=== PATIENT | male | born 1945 | race Caucasian/White ===

== ENCOUNTER → 2016-11-12 | Outpatient (CLI) | payer OTHER ==
[~2016-11-12] MED LIST: APIX5TAB PO; ATOR10TA9 PO; DIGO125T PO; DILT120C11 PO; PARO30TA3 PO; PT WILL BRING LIST; TRIA15CR3 TP; ZOSTAVAX
== END | disposition home or self-care (01) ==
LOC: CFH 11:58
PROVIDERS: ATTEND Nurse Practitioner
DX: Z12.2 Encounter for screening for malignant neoplasm of respiratory organs (principal); I25.10 Atherosclerotic heart disease of native coronary artery without angina pectoris; J43.2 Centrilobular emphysema; R91.1 Solitary pulmonary nodule; K46.9 Unspecified abdominal hernia without obstruction or gangrene; Z87.891 Personal history of nicotine dependence
CPT/HCPCS: G0297

== ENCOUNTER 2017-04-21 06:33 | Observation (INO) | payer OTHER ==
[2017-04-18 10:16] VITALS: BP 130/104
[2017-04-18 10:44] LABS: HEMOGLOBIN 15.7 g/dL (13.7-18.0); WHITE BLOOD COUNT 7.8 x10^3/uL (3.4-10)
[2017-04-18 10:57] LABS: ASPARTATE AMINO TRANSFERASE 31 U/L (15-37); BLOOD UREA NITROGEN 14 mg/dL (7-18)
[~2017-04-21] VITALS: Ht 180.3 cm; Wt 113.2 kg
[~2017-04-21 06:33] MED LIST changes: +LISI2.5T PO; +METO-93 PO; +MULT-516 PO; +OMEG1CAP6 PO; +TAMS-11 PO; +VITAMIN B12 PO
[2017-04-21] MEDS ORDERED: SODIUM CHLORIDE 0.9% 1,000 ML IV SCH (06:45)
[2017-04-21] MEDS ORDERED: MIDAZOLAM 1 MG/ML, 5ML ONE ×2 (07:48→13:44)
[2017-04-21] MEDS ORDERED: FENTANYL PF 100 MCG/2ML ONE ×3 (07:49→13:44)
[2017-04-21] MEDS ORDERED: ISOPROTERENOL 0.2MG/ML, 5ML ONE (07:50)
[2017-04-21] MEDS ORDERED: LIDOCAINE 2%, 20ML ONE ×3 (07:50→13:45)
[2017-04-21] MEDS ORDERED: PROTAMINE SULFATE 10 MG/ML, 5ML ONE (07:50)
[2017-04-21] MEDS ORDERED: HEPARIN 1,000 UNITS/ML, 10ML ONE (07:50)
[2017-04-21] MEDS ORDERED: PROPOFOL 10 MG/ML, 20ML ONE (08:12)
[2017-04-21] MEDS ORDERED: DEXAMETHASONE 4 MG/ML, 5ML ONE (08:12)
[2017-04-21] MEDS ORDERED: ONDANSETRON 2MG/ML, 2ML ONE (08:12)
[2017-04-21] MEDS ORDERED: SUCCINYLCHOLINE 20 MG/ML, 10ML ONE (08:12)
[2017-04-21] MEDS ORDERED: ROCURONIUM 10 MG/ML ONE (08:12)
[2017-04-21] MEDS ORDERED: MIDAZOLAM 1 MG/ML, 2ML IV PRN (10:00)
[2017-04-21] MEDS ORDERED: FENTANYL PF 100 MCG/2ML IV PRN (10:00)
[2017-04-21] MEDS ORDERED: ACETAMINOPHEN 325 MG TABLET PO PRN (10:00)
[2017-04-21] MEDS ORDERED: ONDANSETRON 2MG/ML, 2ML IVPush PRN (10:00)
[2017-04-21] MEDS ORDERED: EPHEDRINE 50 MG/ML, 1ML IVPush PRN (10:00)
[2017-04-21] MEDS ORDERED: ALBUTEROL SULFATE 2.5 MG/3 ML NPPB PRN (10:00)
[2017-04-21] MEDS ORDERED: hydrALAzine 20 MG/ML, 1ML IV PRN (10:00)
[2017-04-21] MEDS ORDERED: OXYcodone 5 MG/5 ML ORAL.SOL UDC PO PRN (10:00)
[2017-04-21] MEDS ORDERED: HYDROmorphone 1 MG/ML, 1ML IV PRN (10:00)
[2017-04-21] MEDS ORDERED: LABETALOL 5MG/ML, 20ML IV PRN (10:00)
[2017-04-21] MEDS ORDERED: MEPERIDINE/PF 25MG/0.5ML IVPush PRN (10:00)
[2017-04-21] MEDS ORDERED: PROMETHAZINE 25 MG/ML, 1ML IV PRN (10:00)
[2017-04-21] MEDS ORDERED: ZOLPIDEM 5MG TABLET PO PRN (11:30)
[2017-04-21] MEDS ORDERED: HYDROcodone/APAP 5/325 TABLET PO PRN (11:30)
[2017-04-21] MEDS ORDERED: CEFAZOLIN PMX 1GM/50ML 50 ML ONE (13:44)
[2017-04-21] MEDS ORDERED: CEFAZOLIN 1,000 MG ONE (13:45)
[2017-04-21] MEDS ORDERED: CEFAZOLIN PMX 1GM/50ML 50 ML IVPB SCH ×2 (16:00)
[2017-04-21 16:23] VITALS: BP 101/70
[2017-04-21 18:42] VITALS: BP 110/71
[2017-04-21] MEDS: TRIAMCINOLONE CRM 0.1%, 15GM TP SCH (21:00)
[2017-04-21] MEDS: APIXABAN 5 MG TABLET PO SCH (21:00)
[2017-04-21] MEDS ORDERED: ATORVASTATIN 10 MG TABLET PO SCH (21:00)
[2017-04-21] MEDS: LISINOPRIL 5 MG TABLET PO SCH (21:11)
[2017-04-21] MEDS: SODIUM CHLORIDE FLUSH 10ML SYR IVF SCH (21:12)
[2017-04-21] MEDS: CEFAZOLIN PMX 1GM/50ML 50 ML IVPB SCH (23:29)
[2017-04-21] MEDS: TAMSULOSIN 0.4 MG CAP.ER.24H PO SCH (23:29)
[2017-04-22 01:00] VITALS: BP 111/70
[2017-04-22 07:15] VITALS: BP 132/89
[2017-04-22] MEDS ORDERED: OMEGA-3/FISH OIL CAPSULE PO SCH (09:00)
[2017-04-22] MEDS ORDERED: METOPROLOL SUCCINATE 50 MG TAB.ER.24H PO SCH (09:00)
[2017-04-22] MEDS ORDERED: MULTIVITAMIN 1 TABLET PO SCH (09:00)
[2017-04-22] MEDS: APIXABAN 5 MG TABLET PO SCH ×2 (09:00→10:08)
[2017-04-22] MEDS ORDERED: CYANOCOBALAMIN 1,000 MCG TABLET PO SCH (09:00)
[2017-04-22] MEDS ORDERED: PAROXETINE 20 MG TABLET PO SCH (09:00)
[2017-04-22] MEDS ORDERED: TAMSULOSIN 0.4 MG CAP.ER.24H PO SCH (09:00)
[2017-04-22] MEDS: TRIAMCINOLONE CRM 0.1%, 15GM TP SCH (09:00)
[2017-04-22] MEDS: CEFAZOLIN PMX 1GM/50ML 50 ML IVPB SCH (10:12)
[2017-04-22] MEDS: LISINOPRIL 5 MG TABLET PO SCH (10:15)
[2017-04-22] MEDS: TAMSULOSIN 0.4 MG CAP.ER.24H PO SCH (10:15)
[2017-04-22] MEDS: SODIUM CHLORIDE FLUSH 10ML SYR IVF SCH (10:19)
== END 2017-04-22 14:02 | disposition home or self-care (01) ==
LOC: CACL 06:33 → ORIP 15:54 → 5SO 16:07 → DCLOUNGE 04-22 13:43
PROVIDERS: ADMIT Internal Medicine Cardiovascular Disease; ATTEND Internal Medicine Cardiovascular Disease
DX: I48.92 Unspecified atrial flutter (principal); I48.91 Unspecified atrial fibrillation; I49.5 Sick sinus syndrome; I42.9 Cardiomyopathy, unspecified; I10 Essential (primary) hypertension; E78.5 Hyperlipidemia, unspecified
CPT/HCPCS: 33208; 36005; 36415; 71010; 71020; 80053; 85025; 85610; 85730; 93312; 93321; 93325; 93613; 93621; 93653; 96365; 96375; 99156; 99157; C1730; C1731; C1779; C1785; C1892; C1894; C2630; G0378; J0330; J0690; J1100; J2250; J2405; J2704; J3010; J3490; Q9967; J1644; J2720

== ENCOUNTER 2017-04-28 19:27 | Emergency (ER) | payer OTHER ==
[~2017-04-28] VITALS: Ht 180.3 cm; Wt 108.0 kg
[2017-04-28] MEDS ORDERED: DILTIAZEM 125 MG in DEXTROSE 5% 100 ML IV SCH (19:56)
[2017-04-28] MEDS ORDERED: DILTIAZEM 5 MG/ML, 5ML ONE (19:57)
[2017-04-28] MEDS ORDERED: DILTIAZEM 5 MG/ML, 5ML IV ONE (20:00)
[2017-04-28 20:01] LABS: HEMATOCRIT 44.8 % (39.2-51.8); HEMOGLOBIN 15.3 g/dL (13.7-18.0); WHITE BLOOD COUNT 9.4 x10^3/uL (3.4-10)
[2017-04-28 20:12] LABS: BLOOD UREA NITROGEN 14 mg/dL (7-18)
[2017-04-28 20:16] LABS: IS PT STATUS REG ER OR PRE ER? YES
[2017-04-28] MEDS ORDERED: DIGOXIN 0.25 MG/ML, 2ML ONE (20:43)
[2017-04-28] MEDS ORDERED: DIGOXIN 0.25 MG/ML, 2ML IVPush ONE (21:00)
[2017-04-28] MEDS ORDERED: SODIUM CHLORIDE 0.9% 1,000ML IVBOLUS ONE (21:00)
[2017-04-28 22:04] VITALS: BP 99/63
== END 2017-04-28 22:09 | disposition home or self-care (01) ==
LOC: ED 21:36
DX: I48.92 Unspecified atrial flutter (principal); E78.00 Pure hypercholesterolemia, unspecified; I10 Essential (primary) hypertension
CPT/HCPCS: 36415; 71010; 80048; 82040; 84484; 85025; 93005; 96360; 99285; J7030

== ENCOUNTER 2017-07-04 09:22 | Inpatient (IN) | payer OTHER ==
[2017-07-02 11:04] VITALS: BP 131/75
[2017-07-02 11:19] LABS: HEMATOCRIT 44.2 % (39.2-51.8); HEMOGLOBIN 15.3 g/dL (13.7-18.0); WHITE BLOOD COUNT 7.3 x10^3/uL (3.4-10)
[2017-07-02 11:32] LABS: ASPARTATE AMINO TRANSFERASE 30 U/L (15-37); BLOOD UREA NITROGEN 11 mg/dL (7-18)
[~2017-07-04] VITALS: Ht 180.3 cm; Wt 105.9 kg
[2017-07-04] MEDS ORDERED: SODIUM CHLORIDE 0.9% 1,000 ML IV SCH (09:33)
[2017-07-04] MEDS ORDERED: DIGO125T PO (09:47)
[2017-07-04] MEDS ORDERED: MIDAZOLAM 1 MG/ML, 5ML ONE ×2 (12:05→13:55)
[2017-07-04] MEDS ORDERED: ADENOSINE 6 MG/2 ML ONE ×2 (12:05→14:14)
[2017-07-04] MEDS ORDERED: ISOPROTERENOL 0.2MG/ML, 5ML ONE (12:05)
[2017-07-04] MEDS ORDERED: LIDOCAINE 2%, 20ML ONE (12:05)
[2017-07-04] MEDS ORDERED: FENTANYL PF 100 MCG/2ML ONE ×2 (12:05→13:55)
[2017-07-04] MEDS ORDERED: ZOLPIDEM 5MG TABLET PO PRN (15:00)
[2017-07-04] MEDS ORDERED: ACETAMINOPHEN 325 MG TABLET PO PRN (15:00)
[2017-07-04 16:09] VITALS: BP 112/78
[2017-07-04] MEDS: SOTALOL 120MG TABLET PO SCH (17:32)
[2017-07-04 19:27] VITALS: BP 97/62
[2017-07-04] MEDS: TRIAMCINOLONE CRM 0.1%, 15GM TP SCH (20:08)
[2017-07-04] MEDS: APIXABAN 5 MG TABLET PO SCH (20:09)
[2017-07-04] MEDS: ATORVASTATIN 20 MG TABLET PO SCH (20:10)
[2017-07-04] MEDS: LISINOPRIL 5 MG TABLET PO SCH (20:10)
[2017-07-05 02:16] VITALS: BP 110/65
[2017-07-05 06:23] VITALS: BP 120/76
[2017-07-05] MEDS: SOTALOL 120MG TABLET PO SCH ×2 (06:25→20:31)
[2017-07-05 07:47] VITALS: BP 112/68
[2017-07-05] MEDS: PAROXETINE 10 MG TABLET PO SCH (08:10)
[2017-07-05] MEDS: DIGOXIN 0.125 MG TABLET PO SCH (08:10)
[2017-07-05] MEDS: TRIAMCINOLONE CRM 0.1%, 15GM TP SCH ×2 (08:10→19:13)
[2017-07-05] MEDS: LISINOPRIL 5 MG TABLET PO SCH ×2 (08:10→20:32)
[2017-07-05] MEDS: CYANOCOBALAMIN 1,000 MCG TABLET PO SCH (08:10)
[2017-07-05] MEDS: APIXABAN 5 MG TABLET PO SCH ×2 (08:10→20:31)
[2017-07-05] MEDS: MULTIVITAMIN 1 TABLET PO SCH (08:10)
[2017-07-05] MEDS: OMEGA-3/FISH OIL CAPSULE PO SCH (08:17)
[2017-07-05] MEDS ORDERED: TAMSULOSIN 0.4 MG CAP.ER.24H PO SCH (09:00)
[2017-07-05 14:07] VITALS: BP 92/58
[2017-07-05 20:26] VITALS: BP 103/65
[2017-07-05] MEDS: ATORVASTATIN 20 MG TABLET PO SCH (20:32)
[2017-07-06 02:51] VITALS: BP 108/69
[2017-07-06 07:04] VITALS: BP 119/75
[2017-07-06] MEDS: CYANOCOBALAMIN 1,000 MCG TABLET PO SCH (08:47)
[2017-07-06] MEDS: LISINOPRIL 5 MG TABLET PO SCH (08:47)
[2017-07-06] MEDS: OMEGA-3/FISH OIL CAPSULE PO SCH (08:47)
[2017-07-06] MEDS: MULTIVITAMIN 1 TABLET PO SCH (08:48)
[2017-07-06] MEDS: SOTALOL 120MG TABLET PO SCH (08:48)
[2017-07-06] MEDS: DIGOXIN 0.125 MG TABLET PO SCH (08:48)
[2017-07-06] MEDS: APIXABAN 5 MG TABLET PO SCH (08:48)
[2017-07-06] MEDS: PAROXETINE 10 MG TABLET PO SCH (08:48)
[2017-07-06] MEDS: TRIAMCINOLONE CRM 0.1%, 15GM TP SCH (08:49)
[2017-07-06] MEDS ORDERED: SOTA120T14 PO (08:54)
== END 2017-07-06 11:06 | disposition home or self-care (01) | DRG 274 ==
LOC: CACL 09:22 → ORIP 14:42 → 5SO 15:11 → OBSVTOIN 07-05 11:11
PROVIDERS: ADMIT Internal Medicine Cardiovascular Disease; ATTEND Internal Medicine Cardiovascular Disease
PROC: 5A2204Z Restoration of Cardiac Rhythm, Single (ICD-10-PCS; 2017-07-04)
PROC: 5A2204Z Restoration of Cardiac Rhythm, Single (ICD-10-PCS; 2017-07-04)
PROC: 02583ZZ Destruction of Conduction Mechanism, Percutaneous Approach (ICD-10-PCS; principal; 2017-07-05)
PROC: 4A023FZ Measurement of Cardiac Rhythm, Percutaneous Approach (ICD-10-PCS; 2017-07-05)
PROC: 4A0234Z Measurement of Cardiac Electrical Activity, Percutaneous Approach (ICD-10-PCS; 2017-07-05)
PROC: 02K83ZZ Map Conduction Mechanism, Percutaneous Approach (ICD-10-PCS; 2017-07-05)
PROC: 4B02XSZ Measurement of Cardiac Pacemaker, External Approach (ICD-10-PCS; 2017-07-06)
DX: I47.1 Supraventricular tachycardia (principal); D68.69 Other thrombophilia; I42.9 Cardiomyopathy, unspecified; I48.0 Paroxysmal atrial fibrillation; E78.5 Hyperlipidemia, unspecified; I10 Essential (primary) hypertension; N40.0 Benign prostatic hyperplasia without lower urinary tract symptoms; Z87.891 Personal history of nicotine dependence; Z95.0 Presence of cardiac pacemaker; Z79.899 Other long term (current) drug therapy
CPT/HCPCS: 36415; 71020; 80053; 85025; 85610; 85730; 93005; 93613; 93621; 93653; 93655; 99156; 99157; C1731; C1766; C1894; C2630; G0378; J0153; J2250; J3010; J3490; C1730

== ENCOUNTER → 2018-01-05 | Outpatient (CLI) | payer OTHER ==
[~2018-01-05] MED LIST changes: +SOTA120T14 PO
== END | disposition home or self-care (01) ==
LOC: CFH 15:26
PROVIDERS: ATTEND Nurse Practitioner Family
DX: I08.0 Rheumatic disorders of both mitral and aortic valves (principal); I48.91 Unspecified atrial fibrillation; E78.5 Hyperlipidemia, unspecified; I47.2 Ventricular tachycardia
CPT/HCPCS: 93306

== ENCOUNTER → 2018-01-05 | Outpatient (CLI) | payer OTHER ==
[~2018-01-05] MED LIST changes: +REGADENOSON 0.4 MG/5 ML SYRINGE ONE
== END | disposition home or self-care (01) ==
LOC: CFH 12:18
PROVIDERS: ATTEND Nurse Practitioner
DX: I25.10 Atherosclerotic heart disease of native coronary artery without angina pectoris (principal); Z87.891 Personal history of nicotine dependence
CPT/HCPCS: 78452; 93017; A9502; G0297; J2785

== ENCOUNTER 2018-01-31 09:12 | Inpatient (IN) | payer OTHER ==
[~2018-01-31] VITALS: Ht 180.3 cm; Wt 110.8 kg
[~2018-01-31 09:12] MED LIST changes: -REGADENOSON 0.4 MG/5 ML SYRINGE ONE
[2018-01-31] MEDS ORDERED: SODIUM CHLORIDE FLUSH 10ML SYR IVF ONE (09:30)
[2018-01-31] MEDS ORDERED: ALBUTEROL/IPRATROPIUM 2.5MG/0.5MG, 3 ML NPPB ONE (09:30)
[2018-01-31] MEDS ORDERED: SODIUM CHLORIDE 0.9% 1,000ML IVBOLUS ONE (09:30)
[2018-01-31] MEDS ORDERED: ALBUTEROL/IPRATROPIUM 2.5MG/0.5MG, 3 ML ONE (09:43)
[2018-01-31 09:51] LABS: BASOPHILS % (AUTO) 0 % (0-1); EOSINOPHILS # (AUTO) 0.01 x10^3/uL (0-0.4); EOSINOPHILS % (AUTO) 0 % (1-7); LYMPHOCYTES # (AUTO) 0.45 x10^3/uL (1-3.4); LYMPHOCYTES % (AUTO) 5 % (22-44); MD NO; MEAN CORPUSCULAR HEMOGLOBIN 32.2 pg (27.5-34.5); MEAN CORPUSCULAR HGB CONC 33.8 g/dL (33.2-36.2); MEAN CORPUSCULAR VOLUME 95.4 fL (81-97); MEAN PLATELET VOLUME 9.9 fL (7.4-10.4); MONOCYTES # (AUTO) 0.72 x10^3/uL (0.2-0.8); MONOCYTES % (AUTO) 8 % (2-9); NEUTROPHILS # (AUTO) 8.45 x10^3/uL (1.8-6.8); NEUTROPHILS % (AUTO) 88 % (42-75); PLATELET COUNT 136 x10^3/uL (130-400); RED BLOOD COUNT 4.26 x10^6/uL (4.38-5.82); RED CELL DISTRIBUTION WIDTH 14.5 % (9.4-14.8)
[2018-01-31] MEDS ORDERED: AZITHROMYCIN 500 MG in SODIUM CHLORIDE 0.9% 250 ML IV ONE (10:00)
[2018-01-31] MEDS ORDERED: CEFTRIAXONE 1,000 MG in SODIUM CHLORIDE 0.9% 50 ML IV ONE (10:00)
[2018-01-31 10:01] LABS: ALANINE AMINOTRANSFERASE 44 U/L (12-78); ALBUMIN 3.2 g/dL (3.4-5.0); ANION GAP 8 mmol/L (5-15); CALCIUM 8.5 mg/dL (8.5-10.1); CHLORIDE 102 mmol/L (98-107); CREATININE 0.86 mg/dL (0.7-1.3)
[2018-01-31 10:05] LABS: ALKALINE PHOSPHATASE 79 U/L (45-117); BILIRUBIN,TOTAL 2.1 mg/dL (0.2-1.0); TOTAL PROTEIN 7.2 g/dL (6.4-8.2); TROPONIN I < 0.015 ng/mL (0.000-0.045)
[2018-01-31 10:08] LABS: D-DIMER 0.44 ug/mlFEU (0.00-0.52); INTERNATIONAL NORMALIZED RATIO 1.09 (0.93-1.1); PROTHROMBIN TIME 11.3 Seconds (9.6-11.5)
[2018-01-31] MEDS ORDERED: SOTA160T13 PO (10:31)
[2018-01-31 11:16] VITALS: BP 105/67
[2018-01-31] MEDS ORDERED: hydrALAzine 20 MG/ML, 1ML IVPush PRN (12:30)
[2018-01-31] MEDS ORDERED: ALBUTEROL SULFATE 2.5MG/0.5ML NPPB PRN (12:30)
[2018-01-31] MEDS: PAROXETINE 10 MG TABLET PO SCH (12:30)
[2018-01-31] MEDS ORDERED: DOCUSATE 100 MG CAPSULE PO PRN (12:30)
[2018-01-31] MEDS ORDERED: ONDANSETRON 2MG/ML, 2ML IVPush PRN (12:30)
[2018-01-31] MEDS ORDERED: GUAIFENESIN/DM 200-20MG, 10ML UDC PO PRN (12:30)
[2018-01-31] MEDS ORDERED: OXYcodone IR 5MG TABLET PO PRN (12:30)
[2018-01-31] MEDS: ACETAMINOPHEN 325 MG TABLET PO PRN (12:36)
[2018-01-31 13:19] VITALS: BP 103/66
[2018-01-31] MEDS: LACTATED RINGERS 1,000 ML IV SCH (13:44)
[2018-01-31] MEDS: ALBUTEROL/IPRATROPIUM 2.5MG/0.5MG, 3 ML HHN SCH ×2 (16:00→18:30)
[2018-01-31] MEDS ORDERED: SOTALOL 80MG TABLET ONE (18:53)
[2018-01-31] MEDS: SOTALOL 80MG TABLET PO SCH (18:54)
[2018-01-31] MEDS: TRIAMCINOLONE CRM 0.1%, 15GM TP SCH (21:00)
[2018-01-31 21:03] VITALS: BP 132/77
[2018-01-31] MEDS: ATORVASTATIN 20 MG TABLET PO SCH (21:05)
[2018-01-31] MEDS: LISINOPRIL 5 MG TABLET PO SCH (21:05)
[2018-01-31] MEDS: APIXABAN 5 MG TABLET PO SCH (21:06)
[2018-01-31 23:02] LABS: MICROSCOPIC NOT IND
[2018-01-31 23:05] LABS: CULTURE INDICATED? NO
[2018-02-01] MEDS: LACTATED RINGERS 1,000 ML IV SCH ×3 (00:20→19:55)
[2018-02-01] MEDS: ALBUTEROL/IPRATROPIUM 2.5MG/0.5MG, 3 ML HHN SCH ×4 (00:30→20:30)
[2018-02-01 01:45] VITALS: BP 118/75
[2018-02-01 05:26] LABS: ANION GAP 5 mmol/L (5-15); CALCIUM 8.2 mg/dL (8.5-10.1); CHLORIDE 104 mmol/L (98-107); CREATININE 0.67 mg/dL (0.7-1.3)
[2018-02-01] MEDS: SOTALOL 80MG TABLET PO SCH ×2 (06:05→18:36)
[2018-02-01 06:21] LABS: BASOPHILS # (AUTO) 0.02 x10^3/uL (0-0.1); BASOPHILS % (AUTO) 0 % (0-1); EOSINOPHILS # (AUTO) 0.01 x10^3/uL (0-0.4); EOSINOPHILS % (AUTO) 0 % (1-7); LYMPHOCYTES # (AUTO) 0.69 x10^3/uL (1-3.4); LYMPHOCYTES % (AUTO) 9 % (22-44); MD NO; MEAN CORPUSCULAR HEMOGLOBIN 32.8 pg (27.5-34.5); MEAN CORPUSCULAR HGB CONC 33.6 g/dL (33.2-36.2); MEAN CORPUSCULAR VOLUME 97.6 fL (81-97); MEAN PLATELET VOLUME 9.5 fL (7.4-10.4); MONOCYTES # (AUTO) 0.79 x10^3/uL (0.2-0.8); MONOCYTES % (AUTO) 11 % (2-9); NEUTROPHILS # (AUTO) 5.84 x10^3/uL (1.8-6.8); NEUTROPHILS % (AUTO) 80 % (42-75); PLATELET COUNT 122 x10^3/uL (130-400); RED BLOOD COUNT 4.02 x10^6/uL (4.38-5.82); RED CELL DISTRIBUTION WIDTH 13.9 % (9.4-14.8)
[2018-02-01 07:32] VITALS: BP 138/79
[2018-02-01] MEDS: CEFTRIAXONE 1,000 MG in SODIUM CHLORIDE 0.9% 50 ML IV SCH (07:49)
[2018-02-01] MEDS: APIXABAN 5 MG TABLET PO SCH ×2 (07:50→21:14)
[2018-02-01] MEDS: TAMSULOSIN 0.4 MG CAP.ER.24H PO SCH (07:50)
[2018-02-01] MEDS: AZITHROMYCIN 500 MG TABLET PO SCH (07:50)
[2018-02-01] MEDS: ACETAMINOPHEN 325 MG TABLET PO PRN (07:50)
[2018-02-01] MEDS: CYANOCOBALAMIN 1,000 MCG TABLET PO SCH (07:50)
[2018-02-01] MEDS: LISINOPRIL 5 MG TABLET PO SCH ×2 (07:51→21:14)
[2018-02-01] MEDS: MULTIVITAMIN 1 TABLET PO SCH (07:51)
[2018-02-01] MEDS: PAROXETINE 10 MG TABLET PO SCH (07:53)
[2018-02-01] MEDS: TRIAMCINOLONE CRM 0.1%, 15GM TP SCH ×2 (08:37→21:00)
[2018-02-01 13:01] VITALS: BP 117/73
[2018-02-01 19:01] VITALS: BP 112/68
[2018-02-01] MEDS: ATORVASTATIN 20 MG TABLET PO SCH (21:14)
[2018-02-02] MEDS: ALBUTEROL/IPRATROPIUM 2.5MG/0.5MG, 3 ML HHN SCH ×4 (03:00→21:00)
[2018-02-02 03:52] VITALS: BP 146/93
[2018-02-02 05:47] LABS: CALCIUM 8.5 mg/dL (8.5-10.1); CHLORIDE 104 mmol/L (98-107)
[2018-02-02 05:48] LABS: BASOPHILS # (AUTO) 0.01 x10^3/uL (0-0.1); BASOPHILS % (AUTO) 0 % (0-1); EOSINOPHILS # (AUTO) 0.03 x10^3/uL (0-0.4); EOSINOPHILS % (AUTO) 0 % (1-7); LYMPHOCYTES # (AUTO) 0.97 x10^3/uL (1-3.4); LYMPHOCYTES % (AUTO) 11 % (22-44); MD NO; MEAN CORPUSCULAR HEMOGLOBIN 32.5 pg (27.5-34.5); MEAN CORPUSCULAR HGB CONC 33.8 g/dL (33.2-36.2); MEAN CORPUSCULAR VOLUME 96.2 fL (81-97); MEAN PLATELET VOLUME 9.1 fL (7.4-10.4); MONOCYTES # (AUTO) 0.86 x10^3/uL (0.2-0.8); MONOCYTES % (AUTO) 10 % (2-9); NEUTROPHILS # (AUTO) 6.73 x10^3/uL (1.8-6.8); NEUTROPHILS % (AUTO) 78 % (42-75); PLATELET COUNT 165 x10^3/uL (130-400); RED BLOOD COUNT 4.17 x10^6/uL (4.38-5.82); RED CELL DISTRIBUTION WIDTH 13.7 % (9.4-14.8)
[2018-02-02 05:53] LABS: ALANINE AMINOTRANSFERASE 242 U/L (12-78); ALBUMIN 2.8 g/dL (3.4-5.0); ALKALINE PHOSPHATASE 84 U/L (45-117); ANION GAP 7 mmol/L (5-15); BILIRUBIN,TOTAL 1.7 mg/dL (0.2-1.0); CREATININE 0.64 mg/dL (0.7-1.3); TOTAL PROTEIN 6.3 g/dL (6.4-8.2)
[2018-02-02] MEDS: LACTATED RINGERS 1,000 ML IV SCH ×2 (06:15→17:56)
[2018-02-02] MEDS: SOTALOL 80MG TABLET PO SCH ×2 (06:18→17:53)
[2018-02-02 07:23] VITALS: BP 155/95
[2018-02-02] MEDS: TRIAMCINOLONE CRM 0.1%, 15GM TP SCH ×2 (08:27→20:26)
[2018-02-02] MEDS: AZITHROMYCIN 500 MG TABLET PO SCH (08:53)
[2018-02-02] MEDS: PAROXETINE 10 MG TABLET PO SCH (08:53)
[2018-02-02] MEDS: LISINOPRIL 5 MG TABLET PO SCH ×2 (08:53→20:26)
[2018-02-02] MEDS: CYANOCOBALAMIN 1,000 MCG TABLET PO SCH (08:54)
[2018-02-02] MEDS: TAMSULOSIN 0.4 MG CAP.ER.24H PO SCH (08:54)
[2018-02-02] MEDS: APIXABAN 5 MG TABLET PO SCH ×2 (08:54→20:26)
[2018-02-02] MEDS: MULTIVITAMIN 1 TABLET PO SCH (08:54)
[2018-02-02] MEDS: CEFTRIAXONE 1,000 MG in SODIUM CHLORIDE 0.9% 50 ML IV SCH (09:02)
[2018-02-02 12:52] VITALS: BP 130/79
[2018-02-02 19:05] VITALS: BP 151/98
[2018-02-02] MEDS: ATORVASTATIN 20 MG TABLET PO SCH (20:26)
[2018-02-03 02:11] VITALS: BP 162/92
[2018-02-03] MEDS: ALBUTEROL/IPRATROPIUM 2.5MG/0.5MG, 3 ML HHN SCH ×3 (03:20→12:30)
[2018-02-03] MEDS: LACTATED RINGERS 1,000 ML IV SCH (04:00)
[2018-02-03] MEDS: SOTALOL 80MG TABLET PO SCH (05:23)
[2018-02-03 07:58] VITALS: BP 158/89
[2018-02-03] MEDS: TRIAMCINOLONE CRM 0.1%, 15GM TP SCH (09:08)
[2018-02-03] MEDS: AZITHROMYCIN 500 MG TABLET PO SCH (09:10)
[2018-02-03] MEDS: APIXABAN 5 MG TABLET PO SCH (09:10)
[2018-02-03] MEDS: PAROXETINE 10 MG TABLET PO SCH (09:10)
[2018-02-03] MEDS: CYANOCOBALAMIN 1,000 MCG TABLET PO SCH (09:10)
[2018-02-03] MEDS: CEFTRIAXONE 1,000 MG in SODIUM CHLORIDE 0.9% 50 ML IV SCH (09:11)
[2018-02-03] MEDS: LISINOPRIL 5 MG TABLET PO SCH (09:11)
[2018-02-03] MEDS: TAMSULOSIN 0.4 MG CAP.ER.24H PO SCH (09:11)
[2018-02-03] MEDS: MULTIVITAMIN 1 TABLET PO SCH (09:11)
[2018-02-03 10:32] LABS: ALBUMIN 2.7 g/dL (3.4-5.0); ANION GAP 8 mmol/L (5-15); CALCIUM 8.7 mg/dL (8.5-10.1); CHLORIDE 103 mmol/L (98-107)
[2018-02-03 10:35] LABS: ALANINE AMINOTRANSFERASE 206 U/L (12-78); ALKALINE PHOSPHATASE 76 U/L (45-117); BILIRUBIN,TOTAL 1.6 mg/dL (0.2-1.0); TOTAL PROTEIN 6.2 g/dL (6.4-8.2)
[2018-02-03] MEDS ORDERED: AMOX1TAB64 PO (10:50)
[2018-02-03] MEDS ORDERED: PRED10TA PO (10:50)
[2018-02-03] MEDS ORDERED: ALBU8.5H8 INH (10:56)
[2018-02-03] MEDS: POTASSIUM CHLORIDE 20 MEQ TAB.ER.PRT PO SCH ×2 (11:13→15:06)
== END 2018-02-03 16:50 | disposition home or self-care (01) | DRG 177 ==
LOC: ED 10:11 → EDIP 10:35 → 3NE 11:18 → DCLOUNGE 02-03 16:33
PROVIDERS: ADMIT Internal Medicine; ATTEND Internal Medicine
DX: J15.6 Pneumonia due to other Gram-negative bacteria (principal); J96.01 Acute respiratory failure with hypoxia; J44.0 Chronic obstructive pulmonary disease with (acute) lower respiratory infection; D68.69 Other thrombophilia; J44.1 Chronic obstructive pulmonary disease with (acute) exacerbation; J15.20 Pneumonia due to staphylococcus, unspecified; F32.9 Major depressive disorder, single episode, unspecified; E78.5 Hyperlipidemia, unspecified; E87.6 Hypokalemia; I10 Essential (primary) hypertension; I48.91 Unspecified atrial fibrillation; N40.0 Benign prostatic hyperplasia without lower urinary tract symptoms; Z87.891 Personal history of nicotine dependence; Z99.81 Dependence on supplemental oxygen; Z79.01 Long term (current) use of anticoagulants; Z80.0 Family history of malignant neoplasm of digestive organs; Z80.1 Family history of malignant neoplasm of trachea, bronchus and lung; Z82.49 Family history of ischemic heart disease and other diseases of the circulatory system; Z83.3 Family history of diabetes mellitus; Z95.0 Presence of cardiac pacemaker; Z90.79 Acquired absence of other genital organ(s)
CPT/HCPCS: 36415; 71045; 71250; 80048; 80053; 81003; 83605; 83735; 83880; 84484; 85025; 85379; 85610; 85730; 87040; 87070; 87107; 87205; 93005; 94640; 96365; 99285; J0456; J0696; J7620; J7030; J7050; J7120; J7512

== ENCOUNTER → 2018-02-10 | Outpatient (CLI) | payer OTHER ==
[~2018-02-10] MED LIST changes: +ALBU8.5H8 INH; +AMOX1TAB64 PO; +OMNIPAQUE 350 MG/ML, 150 ML BOTTLE ONE; +PRED10TA PO; +SOTA160T13 PO
== END | disposition home or self-care (01) ==
LOC: CFH 12:31
PROVIDERS: ATTEND Internal Medicine Cardiovascular Disease
DX: I48.91 Unspecified atrial fibrillation (principal); I48.92 Unspecified atrial flutter; I49.9 Cardiac arrhythmia, unspecified; I47.9 Paroxysmal tachycardia, unspecified
CPT/HCPCS: 71046; 75572; Q9967

== ENCOUNTER 2018-02-13 08:28 | Observation (INO) | payer OTHER ==
[~2018-02-13] VITALS: Ht 180.3 cm; Wt 91.8 kg
[~2018-02-13 08:28] MED LIST changes: -OMNIPAQUE 350 MG/ML, 150 ML BOTTLE ONE
[2018-02-13] MEDS ORDERED: SODIUM CHLORIDE 0.9% 1,000 ML IV SCH (08:56)
[2018-02-13 09:00] VITALS: BP 126/71
[2018-02-13] MEDS ORDERED: MIDAZOLAM 1 MG/ML, 2ML ONE (09:06)
[2018-02-13] MEDS ORDERED: FENTANYL PF 250 MCG/5ML ONE (09:07)
[2018-02-13] MEDS ORDERED: ISOPROTERENOL 0.2MG/ML, 5ML ONE (09:49)
[2018-02-13] MEDS ORDERED: LIDOCAINE/PF 1%, 30ML ONE (09:49)
[2018-02-13] MEDS ORDERED: HEPARIN 1,000 UNITS/ML, 10ML ONE (09:50)
[2018-02-13] MEDS ORDERED: PROTAMINE SULFATE 10 MG/ML, 5ML ONE (09:55)
[2018-02-13] MEDS ORDERED: ACETAMINOPHEN 325 MG TABLET PO PRN (14:00)
[2018-02-13] MEDS ORDERED: ZOLPIDEM 5MG TABLET PO PRN (14:00)
[2018-02-13] MEDS ORDERED: ALBUTEROL SULFATE INH PRN (14:00)
[2018-02-13] MEDS ORDERED: MEPERIDINE/PF 25MG/0.5ML IVPush PRN (14:30)
[2018-02-13] MEDS ORDERED: LABETALOL 5MG/ML, 20ML IV PRN (14:30)
[2018-02-13] MEDS ORDERED: ONDANSETRON ODT 8 MG PO PRN (14:30)
[2018-02-13] MEDS ORDERED: ALBUTEROL SULFATE 2.5 MG/3 ML NPPB PRN (14:30)
[2018-02-13] MEDS ORDERED: PROMETHAZINE 25 MG/ML, 1ML IV PRN (14:30)
[2018-02-13] MEDS ORDERED: MIDAZOLAM 1 MG/ML, 2ML IV PRN (14:30)
[2018-02-13] MEDS ORDERED: LORazepam 2 MG/ML, 1ML IVPush PRN (14:30)
[2018-02-13] MEDS ORDERED: PROMETHAZINE 12.5 MG SUPP PR PRN (14:30)
[2018-02-13] MEDS ORDERED: hydrALAzine 20 MG/ML, 1ML IV PRN (14:30)
[2018-02-13] MEDS ORDERED: HYDROmorphone 1 MG/ML, 1ML IV PRN (14:30)
[2018-02-13] MEDS ORDERED: FENTANYL PF 100 MCG/2ML IV PRN (14:30)
[2018-02-13] MEDS ORDERED: OXYcodone 5 MG/5 ML ORAL.SOL UDC PO PRN (14:30)
[2018-02-13] MEDS ORDERED: ONDANSETRON 2MG/ML, 2ML IV PRN (14:30)
[2018-02-13 15:00] VITALS: BP 109/65
[2018-02-13] MEDS ORDERED: APIXABAN 5 MG TABLET ONE (15:36)
[2018-02-13] MEDS: APIXABAN 5 MG TABLET PO SCH (15:39)
[2018-02-13] MEDS ORDERED: ROCURONIUM 10MG/ML,5ML ONE (15:50)
[2018-02-13] MEDS ORDERED: CEFAZOLIN 1,000 MG ONE (15:50)
[2018-02-13] MEDS ORDERED: SUCCINYLCHOLINE 20 MG/ML, 10ML ONE (15:50)
[2018-02-13] MEDS ORDERED: DEXAMETHASONE 4 MG/ML, 1ML ONE (15:50)
[2018-02-13] MEDS ORDERED: PROPOFOL 10 MG/ML, 20ML ONE (15:50)
[2018-02-13] MEDS ORDERED: ONDANSETRON 2MG/ML, 2ML ONE (15:50)
[2018-02-13] MEDS ORDERED: SOTALOL 80MG TABLET ONE (16:51)
[2018-02-13 16:59] VITALS: BP 112/68
[2018-02-13] MEDS: SOTALOL 80MG TABLET PO SCH (17:01)
[2018-02-13] MEDS: LISINOPRIL 5 MG TABLET PO SCH (20:31)
[2018-02-13] MEDS: TRIAMCINOLONE CRM 0.1%, 15GM TP SCH (20:31)
[2018-02-13] MEDS ORDERED: ATORVASTATIN 20 MG TABLET PO SCH (21:00)
[2018-02-13 22:15] VITALS: BP 98/63
[2018-02-14 02:16] VITALS: BP 101/76
[2018-02-14 07:12] VITALS: BP 119/80
[2018-02-14] MEDS: LISINOPRIL 5 MG TABLET PO SCH (08:22)
[2018-02-14] MEDS: SOTALOL 80MG TABLET PO SCH (08:22)
[2018-02-14] MEDS: APIXABAN 5 MG TABLET PO SCH (08:22)
[2018-02-14] MEDS: TRIAMCINOLONE CRM 0.1%, 15GM TP SCH (08:24)
[2018-02-14] MEDS ORDERED: CYANOCOBALAMIN 1,000 MCG TABLET PO SCH (09:00)
[2018-02-14] MEDS ORDERED: OMEGA-3/FISH OIL CAPSULE PO SCH (09:00)
[2018-02-14] MEDS ORDERED: TAMSULOSIN 0.4 MG CAP.ER.24H PO SCH (09:00)
[2018-02-14] MEDS ORDERED: MULTIVITAMIN 1 TABLET PO SCH (09:00)
[2018-02-14] MEDS ORDERED: PAROXETINE 10 MG TABLET PO SCH (09:00)
== END 2018-02-14 12:34 | disposition home or self-care (01) ==
LOC: CACL 08:28 → ORIP 13:45 → 5SO 15:30
PROVIDERS: ADMIT Internal Medicine Cardiovascular Disease; ATTEND Internal Medicine Cardiovascular Disease
DX: I48.91 Unspecified atrial fibrillation (principal); I48.92 Unspecified atrial flutter
CPT/HCPCS: 85347; 93308; 93312; 93320; 93321; 93325; 93613; 93655; 93656; 93662; C1730; C1732; C1759; C1766; C1893; C1894; G0378; J0330; J0690; J1100; J1644; J2250; J2405; J2704; J2720; J3010; J3490

== ENCOUNTER → 2018-03-31 | Outpatient (CLI) | payer OTHER | END | disposition home or self-care (01) | LOC: CFH 09:35 | PROVIDERS: ATTEND Nurse Practitioner | DX: K76.0 Fatty (change of) liver, not elsewhere classified (principal) | CPT/HCPCS: 76700 ==

== ENCOUNTER → 2018-06-11 | Outpatient (CLI) | payer OTHER | END | disposition home or self-care (01) | LOC: CFH 10:09 | PROVIDERS: ATTEND Nurse Practitioner | DX: J43.2 Centrilobular emphysema (principal); R91.8 Other nonspecific abnormal finding of lung field; I70.0 Atherosclerosis of aorta | CPT/HCPCS: 71250 ==

== ENCOUNTER → 2018-12-24 | Outpatient (CLI) | payer MEDICARE ==
[~2018-12-24] MED LIST changes: -TRIA15CR3 TP; +TRIA15CR61 TP
== END | disposition home or self-care (01) ==
LOC: CFH 10:44
PROVIDERS: ATTEND Nurse Practitioner
DX: Z12.2 Encounter for screening for malignant neoplasm of respiratory organs (principal); J43.2 Centrilobular emphysema; R91.1 Solitary pulmonary nodule; Z87.891 Personal history of nicotine dependence
CPT/HCPCS: G0297

== ENCOUNTER → 2019-07-12 | Outpatient (CLI) | payer MEDICARE ==
[~2019-07-12] MED LIST changes: +IPRA3AMP30 NEB
== END | disposition home or self-care (01) ==
LOC: CVU 09:35
PROVIDERS: ATTEND Genetic Counselor, MS
DX: M79.671 Pain in right foot (principal); J44.9 Chronic obstructive pulmonary disease, unspecified; I10 Essential (primary) hypertension
CPT/HCPCS: 93922

== ENCOUNTER → 2019-12-31 | Outpatient (CLI) | payer MEDICARE ==
[~2019-12-31] MED LIST changes: -DIGO125T PO; +DIGO125T85 PO
== END | disposition home or self-care (01) ==
LOC: CFH 10:50
PROVIDERS: ATTEND Internal Medicine Cardiovascular Disease
DX: I08.1 Rheumatic disorders of both mitral and tricuspid valves (principal); I48.91 Unspecified atrial fibrillation; I47.1 Supraventricular tachycardia
CPT/HCPCS: 93306

== ENCOUNTER → 2020-01-19 | Outpatient (CLI) | payer MEDICARE | END | disposition home or self-care (01) | LOC: CFH 10:58 | PROVIDERS: ATTEND Nurse Practitioner | DX: Z12.2 Encounter for screening for malignant neoplasm of respiratory organs (principal); Z87.891 Personal history of nicotine dependence | CPT/HCPCS: G0297 ==

== ENCOUNTER → 2020-02-14 | Outpatient (CLI) | payer MEDICARE ==
[~2020-02-14] MED LIST changes: +OMNIPAQUE 350 MG/ML, 150 ML BOTTLE ONE
== END | disposition home or self-care (01) ==
LOC: CFH 12:26
PROVIDERS: ATTEND Internal Medicine Cardiovascular Disease
DX: I48.0 Paroxysmal atrial fibrillation (principal)
CPT/HCPCS: 71046; 75572; Q9967

== ENCOUNTER 2020-02-18 10:24 | Observation (INO) | payer MEDICARE ==
[~2020-02-18] VITALS: Ht 181.6 cm; Wt 122.2 kg
[~2020-02-18 10:24] MED LIST changes: -OMNIPAQUE 350 MG/ML, 150 ML BOTTLE ONE
[2020-02-18] MEDS ORDERED: SODIUM CHLORIDE 0.9% 1,000 ML IV SCH ×2 (10:51→11:00)
[2020-02-18] MEDS ORDERED: CHOL10003 PO (11:05)
[2020-02-18 11:07] VITALS: BP 129/78
[2020-02-18] MEDS ORDERED: TRIAMCINOLONE TP (11:07)
[2020-02-18] MEDS ORDERED: PLEASE ENTER HEIGHT AND WEIGHT MC SCH (11:30)
[2020-02-18] MEDS ORDERED: LIDOCAINE 2%, 20ML ONE (11:49)
[2020-02-18] MEDS ORDERED: FENTANYL PF 250 MCG/5ML ONE (11:51)
[2020-02-18] MEDS ORDERED: MIDAZOLAM 1 MG/ML, 2ML ONE (11:53)
[2020-02-18] MEDS ORDERED: ONDANSETRON 2MG/ML, 2ML ONE (12:43)
[2020-02-18] MEDS ORDERED: PROPOFOL 10 MG/ML, 20ML ONE (12:43)
[2020-02-18] MEDS ORDERED: ROCURONIUM 10MG/ML,5ML ONE (12:43)
[2020-02-18] MEDS ORDERED: DEXAMETHASONE 4 MG/ML, 1ML ONE (12:43)
[2020-02-18] MEDS ORDERED: SUCCINYLCHOLINE 20 MG/ML, 10ML ONE (12:43)
[2020-02-18] MEDS ORDERED: HEPARIN 1,000 UNITS/ML, 10ML ONE ×3 (12:43→13:44)
[2020-02-18] MEDS ORDERED: EPHEDRINE 50 MG/ML, 1ML IM PRN (14:30)
[2020-02-18] MEDS ORDERED: FENTANYL PF 100 MCG/2ML IV PRN (14:30)
[2020-02-18] MEDS ORDERED: ONDANSETRON 2MG/ML, 2ML IVPush PRN (14:30)
[2020-02-18] MEDS ORDERED: HYDROmorphone 1 MG/ML, 1ML INJ IVPush PRN (14:30)
[2020-02-18] MEDS ORDERED: EPHEDRINE 50 MG/ML, 1ML IVPush PRN (14:30)
[2020-02-18] MEDS ORDERED: OXYcodone 5 MG/5 ML ORAL.SOL UDC PO PRN (14:30)
[2020-02-18] MEDS ORDERED: DIAZEPAM 5 MG/ML, 2ML IVPush PRN (14:30)
[2020-02-18] MEDS ORDERED: MEPERIDINE/PF 25MG/0.5ML IVPush PRN (14:30)
[2020-02-18] MEDS ORDERED: LABETALOL 5MG/ML, 20ML IV PRN (14:30)
[2020-02-18] MEDS ORDERED: PROMETHAZINE 25 MG/ML, 1ML IVPush PRN (14:30)
[2020-02-18] MEDS ORDERED: DIPHENHYDRAMINE 50 MG/ML, 1ML IVPush PRN (14:30)
[2020-02-18] MEDS ORDERED: APIXABAN 5 MG TABLET PO ONE (15:22)
[2020-02-18] MEDS ORDERED: APIXABAN 5 MG TABLET ONE (15:27)
[2020-02-18 18:51] VITALS: BP 87/57
[2020-02-18 19:32] VITALS: BP 92/51
[2020-02-18] MEDS: ACETAMINOPHEN 325 MG TABLET PO PRN (20:10)
[2020-02-18] MEDS: TRIAMCINOLONE CRM 0.1%, 15GM TP SCH (21:00)
[2020-02-18] MEDS ORDERED: ATORVASTATIN 10 MG TABLET PO SCH (21:00)
[2020-02-18] MEDS: SOTALOL 80MG TABLET PO SCH (21:54)
[2020-02-18] MEDS: COLCHICINE 0.6 MG CAPSULE PO SCH (21:54)
[2020-02-18] MEDS: APIXABAN 5 MG TABLET PO SCH (21:54)
[2020-02-19 00:47] VITALS: BP 100/67
[2020-02-19] MEDS: ACETAMINOPHEN 325 MG TABLET PO PRN (06:14)
[2020-02-19 06:32] LABS: CREATININE 0.84 mg/dL (0.7-1.3)
[2020-02-19 06:33] VITALS: BP 137/86
[2020-02-19] MEDS ORDERED: ACET325T26 PO (08:22)
[2020-02-19] MEDS ORDERED: COLC0.6C3 PO (08:22)
[2020-02-19] MEDS ORDERED: PAROXETINE 10 MG TABLET PO SCH (09:00)
[2020-02-19] MEDS ORDERED: TAMSULOSIN 0.4 MG CAP.ER.24H PO SCH (09:00)
[2020-02-19] MEDS ORDERED: CHOLECALCIFEROL 5,000u TAB PO SCH (09:00)
[2020-02-19] MEDS ORDERED: OMEGA-3/FISH OIL CAPSULE PO SCH (09:00)
[2020-02-19] MEDS ORDERED: ALBUTEROL/IPRATROPIUM 2.5MG/0.5MG, 3 ML NEB SCH (09:00)
[2020-02-19] MEDS: TRIAMCINOLONE CRM 0.1%, 15GM TP SCH (09:00)
[2020-02-19] MEDS ORDERED: MULTIVITAMIN 1 TABLET PO SCH (09:00)
[2020-02-19] MEDS: SOTALOL 80MG TABLET PO SCH (09:10)
[2020-02-19] MEDS: APIXABAN 5 MG TABLET PO SCH (09:11)
[2020-02-19] MEDS: COLCHICINE 0.6 MG CAPSULE PO SCH (09:11)
[2020-02-19 14:22] VITALS: BP 102/64
== END 2020-02-19 15:02 | disposition home or self-care (01) ==
LOC: CACL 10:24 → 5SO 16:53 → CACL 20:05
PROVIDERS: ADMIT Internal Medicine Cardiovascular Disease; ATTEND Internal Medicine Cardiovascular Disease
DX: I48.91 Unspecified atrial fibrillation (principal); I48.4 Atypical atrial flutter; J44.9 Chronic obstructive pulmonary disease, unspecified; I10 Essential (primary) hypertension; F10.10 Alcohol abuse, uncomplicated; Z79.01 Long term (current) use of anticoagulants; Z95.0 Presence of cardiac pacemaker; Z79.899 Other long term (current) drug therapy
CPT/HCPCS: 36415; 82565; 85347; 93308; 93312; 93321; 93325; 93613; 93655; 93656; 93662; C1730; C1732; C1759; C1766; C1893; C1894; G0378; J0330; J1100; J1644; J2250; J2405; J2704; J3010; J3490; 87635

== ENCOUNTER → 2020-07-05 | Outpatient (CLI) | payer MEDICARE ==
[~2020-07-05] MED LIST changes: +ACET325T26 PO; +CHOL10003 PO; +COLC0.6C3 PO; +TRIAMCINOLONE TP
== END | disposition home or self-care (01) ==
LOC: CFH 10:55
PROVIDERS: ATTEND Internal Medicine
DX: R91.1 Solitary pulmonary nodule (principal); J43.9 Emphysema, unspecified
CPT/HCPCS: 71250